=== PATIENT | female | born 1990 | race African-American/Black ===

== ENCOUNTER 2020-01-29 14:05 | Emergency (ER) | payer MEDICAID ==
[~2020-01-29] VITALS: Ht 170.2 cm; Wt 74.4 kg
[~2020-01-29 14:05] MED LIST: ACET-9645 PO
[2020-01-29 14:15] VITALS: BP 107/72
--- NOTE | 2020-01-29 14:26 | NUR ---
AMBULATED TO BED 7
--- NOTE | 2020-01-29 14:39 | NUR ---
CAROL TANG AT BEDSIDE.
--- NOTE | 2020-01-29 14:45 | NUR ---
29 to female c/o vag bleeding, cramping x am mis ab0 hx-none meds-none
[2020-01-29 15:28] LABS: BASOPHILS # (AUTO) 0.1 K/uL (0.00-0.22); BASOPHILS % (AUTO) 1.7 % (0.0-2.0); EOSINOPHILS # (AUTO) 0.1 K/uL (0-0.4); HEMATOCRIT 40.6 % (36-48); HEMOGLOBIN 13.8 g/dL (12.0-16.0); LYMPHOCYTES # (AUTO) 1.1 K/uL (2.5-16.5); LYMPHOCYTES % (AUTO) 17.5 % (20.5-51.1); MEAN CORPUSCULAR HEMOGLOBIN 30 pg (27-31); MEAN CORPUSCULAR HGB CONC 34 g/dL (33-37); MEAN CORPUSCULAR VOLUME 88.7 fL (80-94); MONOCYTES # (AUTO) 0.5 K/uL (0.8-1.0); MONOCYTES % (AUTO) 7.5 % (1.7-9.3); NEUTROPHILS # (AUTO) 4.5 K/uL (1.8-7.7); NEUTROPHILS % (AUTO) 72.3 % (42.2-75.2); PLATELET COUNT (AUTO) 325 K/uL (140-450); RED BLOOD CELL COUNT(AUTO) 4.57 MIL/uL (4.20-5.40); RED CELL DISTRIBUTION WIDTH 12.5 % (11.6-13.7); WHITE BLOOD COUNT (AUTO) 6.3 K/uL (4.8-10.8)
[2020-01-29] MEDS: ACETAMINOPHEN 325 MG TAB PO ONE (15:33)
[2020-01-29 15:34] LABS: APPEARANCE,URINE CLEAR (CLEAR); BILIRUBIN,URINE NEGATIVE (NEGATIVE); BLOOD, URINE 1+ (NEGATIVE); COLOR,URINE YELLOW (YELLOW); LEUKOCYTE ESTERASE ,URINE NEGATIVE (NEGATIVE); NITRITE, URINE NEGATIVE (NEGATIVE); UGLUCOSE NEGATIVE (NEGATIVE)
[2020-01-29 15:48] LABS: WBC,URINE 0-5 /HPF (0-5)
[2020-01-29] MEDS: ONDANSETRON 4 MG TAB PO ONE (16:12)
[2020-01-29 17:05] VITALS: BP 110/79
--- NOTE | 2020-01-29 17:06 | NUR ---
Patient discharged with v/s stable. Written and verbal after care instructions given and explained. Patient alert, oriented and verbalized understanding of instructions. Ambulatory with steady gait. All questions addressed prior to discharge. ID band removed. Patient advised to follow up with PMD. Rx of VITAMINS, REGLAN AND TYLENOL given. Patient educated on indication of medication including possible reaction and side effects. Opportunity to ask questions provided and answered.
== END 2020-01-29 17:06 | disposition home or self-care (01) ==
LOC: MED 14:05
DX: O20.0 Threatened abortion (principal); Z3A.01 Less than 8 weeks gestation of pregnancy; Z79.899 Other long term (current) drug therapy; Z88.0 Allergy status to penicillin
CPT/HCPCS: 36415; 76817; 81001; 81025; 84702; 85025; 99284; Q0092; Q0162

== ENCOUNTER 2021-03-15 09:08 | Emergency (ER) | payer MEDICAID, OTHER ==
[~2021-03-15] VITALS: Ht 170.2 cm; Wt 61.2 kg
[2021-03-15 09:14] VITALS: BP 117/77
--- NOTE | 2021-03-15 09:21 | NUR ---
Patient ambulated to bed 05 with steady/even gait.
--- NOTE | 2021-03-15 09:35 | NUR ---
30 YO FEMALE BIBS C/O BUG BITE TO RIGHT UPPER GLUTE AND PAIN 10/10 TO SITE X 3 DAYS. PT REPORTS SHE HAS BEEN SELF DRAINING THE BITE AND PUS HAS BEEN DRAINING. THE SITE HAS APPROX 2 INCHES OF REDNESS, WARM TO TOUCH. THE PATIENT REPORT THE PAIN EXTENDS FROM HER LOWER BACK TO HER THIGH. DENIES LOSS OF SENSATION OR ROM. DENIES FEVER, CHILLS. +NAUSEA ASSOCIATED WITH PAIN. A&OX4, RR EVEN AND UNLABORED. PMH: DENIES ALLERGIES: PCN
--- NOTE | 2021-03-15 09:57 | NUR ---
SAID AT BEDSIDE EVALUATING PT.
--- NOTE | 2021-03-15 10:05 | NUR ---
PT AMBULATED TO BATHROOM, FOR UA SAMPLE.
[2021-03-15] MEDS ORDERED: ACET-2619 PO (10:30)
[2021-03-15] MEDS ORDERED: CLIN-25 PO (10:30)
[2021-03-15 10:35] VITALS: BP 117/77
--- NOTE | 2021-03-15 10:35 | NUR ---
Patient discharged with v/s stable. Written and verbal after care instructions FOR CELLULITIS given and explained. Patient alert, oriented and verbalized understanding of instructions. Ambulatory with steady gait. All questions addressed prior to discharge. ID band removed. Patient advised to follow up with PMD. Rx of ACETAMINOPHEN AND CLINDAMYCIN given. Patient educated on indication of medication including possible reaction and side effects. Opportunity to ask questions provided and answered.
== END 2021-03-15 10:35 | disposition home or self-care (01) ==
LOC: MED 09:08
DX: L03.317 Cellulitis of buttock (principal)
CPT/HCPCS: 81025; 99283

== ENCOUNTER 2021-08-21 10:19 | Emergency (ER) | payer MEDICAID, OTHER ==
[~2021-08-21] VITALS: Ht 170.2 cm; Wt 71.7 kg
[~2021-08-21 10:19] MED LIST changes: +ACET-2619 PO; +CLIN-25 PO
[2021-08-21 11:15] VITALS: BP 118/67
[2021-08-21 15:15] VITALS: BP 116/70
--- NOTE | 2021-08-21 15:15 | NUR ---
Patient discharged with v/s stable. Written and verbal after care instructions given and explained. Patient verbalized understanding. Ambulatory with steady gait. All questions addressed prior to discharge. Advised to follow up with PMD.
== END 2021-08-21 15:15 | disposition home or self-care (01) ==
LOC: MED 10:19
DX: N93.9 Abnormal uterine and vaginal bleeding, unspecified (principal); R10.2 Pelvic and perineal pain; Z88.0 Allergy status to penicillin; Z79.899 Other long term (current) drug therapy
CPT/HCPCS: 81025; 99283

== ENCOUNTER 2023-02-15 10:22 | Emergency (ER) | payer OTHER, MEDICAID ==
[~2023-02-15] VITALS: Ht 170.2 cm; Wt 72.6 kg
[2023-02-15 10:50] VITALS: BP 110/76; PULSE 87; RESP 18; TEMP 98; O2SAT 99
[2023-02-15] MEDS ORDERED: IBUPROFEN 600 MG TAB PO ONE (13:00)
[2023-02-15] MEDS ORDERED: IBUP-2213 PO (13:23)
[2023-02-15] MEDS ORDERED: ACET-10509 PO (13:23)
[2023-02-15] MEDS ORDERED: NITR100C7 PO (13:23)
--- NOTE | 2023-02-15 13:40 | NUR ---
R MIDDLE FINGER SPLINT APPLIED.
--- NOTE | 2023-02-15 13:45 | NUR ---
PT WAS DCD BY CAROL ERNANDEZ ,PT DID NOT RECEIVED MOTRIN
--- NOTE | 2023-02-15 14:15 | NUR ---
Patient discharged with v/s stable. Written and verbal after care instructions given and explained. Patient alert, oriented and verbalized understanding of instructions. Ambulatory with to home. All questions addressed prior to discharge. ID band removed. Patient advised to follow up with PMD. Rx of MOTRIN MACROBID TYLENOL given. Patient educated on indication of medication including possible reaction and side effects. Opportunity to ask questions provided and answered.
== END 2023-02-15 14:15 | disposition home or self-care (01) ==
LOC: MED 10:22
DX: S62.632A Displaced fracture of distal phalanx of right middle finger, initial encounter for closed fracture (principal); N39.0 Urinary tract infection, site not specified; Z88.0 Allergy status to penicillin; Z79.899 Other long term (current) drug therapy; W22.8XXA Striking against or struck by other objects, initial encounter; Y93.89 Activity, other specified; Y92.89 Other specified places as the place of occurrence of the external cause; Y99.8 Other external cause status
CPT/HCPCS: 73130; 81002; 81025; 87086; 87491; 99284

== ENCOUNTER 2023-07-12 16:14 | Emergency (ER) | payer MEDICAID, OTHER ==
[~2023-07-12] VITALS: Ht 167.6 cm; Wt 72.6 kg
[~2023-07-12 16:14] MED LIST changes: +ACET-10509 PO; +IBUP-2213 PO; +NITR100C7 PO
[2023-07-12 16:42] VITALS: BP 110/82; PULSE 88; RESP 18; TEMP 98; O2SAT 98
[2023-07-12] MEDS ORDERED: BPM/473S94 PO (17:22)
[2023-07-12] MEDS ORDERED: IBUP-2213 PO (17:22)
[2023-07-12] MEDS ORDERED: PRON INH (17:22)
[2023-07-12] MEDS ORDERED: PHEN177S23 PO (17:22)
[2023-07-12 18:12] LABS: FLU A ANTIGEN negative (NEGATIVE); FLU B ANTIGEN NEGATIVE (NEGATIVE)
== END 2023-07-12 17:41 | disposition home or self-care (01) ==
LOC: MED 16:14
DX: B34.9 Viral infection, unspecified (principal); Z20.822 Contact with and (suspected) exposure to COVID-19; Z88.0 Allergy status to penicillin
CPT/HCPCS: 99283

== ENCOUNTER 2023-10-15 09:34 | Emergency (ER) | payer MEDICAID ==
[~2023-10-15] VITALS: Ht 170.2 cm; Wt 73.9 kg
[~2023-10-15 09:34] MED LIST changes: +BPM/473S94 PO; +PHEN177S23 PO; +PRON INH
[2023-10-15 09:41] VITALS: BP 107/77; PULSE 92; RESP 19; TEMP 97.8; O2SAT 99
[2023-10-15] MEDS: KETOROLAC 60 MG/2 ML VIAL IM ONE (10:29)
[2023-10-15] MEDS ORDERED: IBUP-2213 PO (11:13)
[2023-10-15] MEDS ORDERED: PRED20TA5 PO (11:13)
== END 2023-10-15 11:20 | disposition home or self-care (01) ==
LOC: MED 09:34
DX: M79.18 Myalgia, other site (principal); R05.9 Cough, unspecified; R51.9 Headache, unspecified; Z79.899 Other long term (current) drug therapy; Z88.0 Allergy status to penicillin
CPT/HCPCS: 96372; 99283; J1885